=== PATIENT | male | born 1980 | race Caucasian/White ===

== ENCOUNTER 2018-06-17 07:33 | Emergency (ER) | payer BC, SELFPAY ==
[2018-06-17 07:34] VITALS: BP 176/100; PULSE 78; RESP 18; TEMP 36.1; O2SAT 99; BMI 35.9
--- NOTE | 2018-06-17 07:53 | ED.VISSUMM ---
- ER Visit Summary Date of Service: 06/17/18 Chief Complaint: Acute central low back pain History of Present Illness: The patient is a 38 M who presents with acute central low back pain that started last evening while grilling. 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 He denies any radicular pain. He denies bowel bladder dysfunction. He denies saddle paresthesia or anesthesia. He denies foot drop. He denies weakness and quadricep muscles going down steps this morning. He denies fever, chills or night sweats. There is no complaint of dysuria, frequency, urgency or hematuria. He denies any testicular pain. He has not noted a rash. Please read written note for complete detail Physical Examination: Vital signs were noted and remarkable for a blood pressure 176/100. Temperature is 96.9. He appears uncomfortable. HEENT is unremarkable. Heart is regular without murmur, gallop or rub. S1 and S2 are normal. Lungs are clear to auscultation with good movement of air bilaterally. Abdomen is soft nontender with normal bowel sounds. There is no hepatosplenomegaly. There are no skin lesions noted. He has no CVA tenderness. He has lower lumbar sacral midline pain to palpation. Having him rise or lower himself during examination causes him discomfort. Straight leg test is negative bilaterally. He states with having his legs brought down which he assisted caused him increased pain. He has normal sensation. Patella and ankle reflex are 2-3+ and symmetric. EHL is intact. There is no clonus or Babinski sign noted. There are no skin lesions or rash noted. There is no surgical scars noted. DP and PT pulses are palpable. Test Results: UA was positive for protein and blood 15 and 25 respectively. Microscopic revealed 0-5 RBCs otherwise negative. Emergency Department Course and Treatment: IV was established he was medicated with 4 mg of Zofran, 30 mg of Toradol and 8 mg of morphine IV push. He also received 5 mg of Valium p.o. since there is a national shortage of parenteral Valium. UA was obtained in the event this is an atypical presentation for ureterolithiasis. With acute atraumatic low back pain differential would include muscular strain, herniated disc. Since pain is less than 24 hours with no history of trauma and he has no constitutional symptoms radiologic imaging is not required. Treatment Plan: Patient was reassessed at 0840. He reports 70% reduction. Patient was seen ambulating to the restroom. There is no foot drop. There is no ataxia. Disposition: Discharged home with appropriate home-going instruction and medication for pain. He was instructed to follow-up with his physician Dr. Zhang Garcia if no improvement in 3-5 days. He was instructed to return immediately if he has inability to urinate or loss of bowel control or weakness in his thigh muscles or develops a foot drop. Impression: Acute central low back pain without sciatica This note was generated with [employer] dictation software. It may contain incorrect words, spelling, and punctuation that were not noted in review of the chart prior to signing ED Disposition - Plan for ED Patient: Disposition: Home or Assisted Living Chief Complaint: Back Instructions: ED Neck Back Pain General Prescriptions: Oxycodone HCl/Acetaminophen [Percocet 5/325] 1 tab PO Q6H PRN PRN 3 Days #12 tab PRN Reason: Pain Naproxen [Naprosyn] 500 mg PO BID #14 tab Diazepam [Valium] 5 mg PO TID #10 tab Referrals: Zhang Garcia [Primary Care Provider] - 3-5 Days if not improving
[2018-06-17] MEDS: morphine 8 MG/ML Syringe IV (08:02)
[2018-06-17] MEDS: diazePAM 5 MG Tablet PO (08:03)
[2018-06-17] MEDS: Ketorolac 30 MG/ML Syringe IV (08:03)
[2018-06-17] MEDS: Ondansetron 4 MG/2 ML Vial IV (08:03)
[2018-06-17 08:13] LABS: Bacteria 0 SEEN /hpf (None Seen); Mucous, Urine 0 SEEN /hpf (<or=2+); Squamous Epithelial Cells - UA 0 SEEN /hpf (0-5); White Blood Cells 0 SEEN /hpf (0-5)
[2018-06-17 08:14] LABS: Color, Urine Yellow (Yellow); Glucose, Dipstick Normal (Normal); Ketone-Dipstick Negative (Negative); Leukocyte Esterase-Dipstick Negative /ul (Negative); Nitrite-Dipstick Negative (Negative); Occult Blood-Urine 25 /ul (Negative); Protein-Dipstick 15 mg/dl (Negative); Specific Gravity, Urine 1.015 (1.002-1.030); Urine Bilirubin Dipstick Negative (Negative); Urine Clarity Clear (Clear); Urine Urobilinogen Normal (Normal); Urine pH 6.5 (5.0 - 8.0)
[2018-06-17 08:20] LABS: Red Blood Cells-Urine 0-5 SEEN /hpf (0-5)
[2018-06-17] MEDS: morphine 8 MG/ML Syringe 6 MG IV (09:10)
[2018-06-17 09:16] VITALS: BP 151/91; PULSE 80; RESP 16; O2SAT 99
== END 2018-06-17 09:17 | disposition home or self-care (01) ==
PROVIDERS: Emergency Provider Emergency Medicine; Family Provider Family Medicine; PCP Family Medicine
DX: M54.5 Low back pain (principal); R11.0 Nausea
CPT/HCPCS: 81001; 96374; 96375; 96376; 99283; J7030; A4216; J2405